=== PATIENT | female | born 1950 | race African-American/Black ===

== ENCOUNTER 2022-01-20 21:42 | Emergency (ER) | payer OTHER ==
[~2022-01-20] VITALS: Ht 160 cm; Wt 98.0 kg
[2022-01-21 00:09] LABS: BASOPHILS % 0.6 % (0.0-2.0); EOSINOPHILS % 5.3 % (0.0-5.0); HEMATOCRIT. 32.1 % (36.0-48.0); HEMOGLOBIN. 10.6 g/dL (12.0-16.0); LYMPHOCYTES % 8.3 % (20.0-50.0); MEAN CORPUSCULAR HEMOGLOBIN 28.8 pg (28.0-32.0); MEAN CORPUSCULAR VOLUME 87.3 fL (81.0-99.0); MEAN PLATELET VOLUME 8.5 fl (7.4-10.4); MONOCYTES % 6.5 % (2.0-8.0); NEUTROPHILS % 79.3 % (40.0-76.0); PLATELET 296 x1000/uL (130-400); RED BLOOD CELL COUNT 3.68 mill/uL (4.2-5.4); RED CELL DISTRIBUTION WIDTH 17.7 % (11.6-14.6)
[2022-01-21 00:14] LABS: CHLORIDE 107 mEq/L (98-107)
[2022-01-21] MEDS ORDERED: CEFU500T41 MT (00:44)
[2022-01-21] MEDS ORDERED: CEFUROXIME AXETIL 250MG TABLET PO ONE (00:45)
[2022-01-21] MEDS ORDERED: DOXYCYCLINE HYCLATE 100MG CAPSULE PO ONE (00:45)
[2022-01-21] MEDS ORDERED: DOXY100T2 MT (00:45)
[2022-01-21 01:10] VITALS: BP 164/72
== END 2022-01-21 01:14 | disposition home or self-care (01) ==
LOC: ER 21:42
DX: J18.9 Pneumonia, unspecified organism (principal); E11.9 Type 2 diabetes mellitus without complications; I10 Essential (primary) hypertension; Z20.822 Contact with and (suspected) exposure to COVID-19
CPT/HCPCS: 36415; 71045; 80053; 83880; 84484; 85025; 87426; 87804; 93005; 99285; C9803